=== PATIENT | female | born 1985 | race Caucasian/White ===

== ENCOUNTER 2023-04-07 00:04 | Emergency (ER) | payer OTHER, SELFPAY ==
[2023-04-07] VITALS (12 sets, daily range): BP systolic 137–143; BP diastolic 61–81; PULSE 61–85; RESP 15–29; TEMP 37.2; O2SAT 99–100; BMI 50.8
--- NOTE | 2023-04-07 00:16 | ED.GENADUL1 ---
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 tonight at rest developed substernal chest pain that radiated into the back of his neck and head. Pain associated with nausea and vomiting. Denies past history. of heart disease. pain started about one hour ago Onset (ago): hour(s) Related Data Allergies Allergy/AdvReac Type Severity Reaction Status Date / Time aripiprazole [From Abilify] Allergy Intermediate Rash Verified 04/07/23 00:07 fentanyl Allergy Intermediate Verified 04/07/23 00:07 aspirin Allergy Mild Rash Verified 04/07/23 00:07 Review of Systems ROS Status of ROS 10 or more systems reviewed and unremarkable except as noted in history and below [facility] Social History Smoking status: Current every day smoker Exam Constitutional Vital Signs, click to edit/add: Last Vital Signs Temp 99.0 F 04/07/23 00:07 Pulse 69 04/07/23 01:31 Resp 17 04/07/23 01:31 BP 137/81 04/07/23 01:31 Pulse Ox 100 04/07/23 01:20 O2 Del Method Room Air 04/07/23 00:07 Common normals: no apparent distress, oriented x3 and alert HENMT Common normals: normocephalic and head/scalp atraumatic Chest Common normals: inspection of chest normal, palpation of chest normal and inspection of breasts normal Respiratory Common normals: normal respiratory effort, no retractions, no use of accessory muscles and clear to auscultation bilaterally Cardio Common normals: regular rate, regular rhythm, S1 normal heart sound and S2 normal heart sound GI Common normals: Normal to inspection, nondistended, normoactive bowel sounds present, soft to palpation and non-tender Extremity Common normals: normal to inspection and full ROM Neuro Common normals: oriented x3, moves all extremities and no focal motor deficits Psych Appearance: grossly normal Course Vital Signs Vital signs: Vital Signs Temperature 99.0 F 04/07/23 00:07 Pulse Rate 76 04/07/23 00:07 Respiratory Rate 17 04/07/23 00:07 Blood Pressure 143/61 H 04/07/23 00:07 Pulse Oximetry 100 08/15/23 00:07 Oxygen Delivery Method Room Air 04/07/23 00:07 Temperature 99.0 F 04/07/23 00:07 Pulse Rate 69 04/07/23 01:31 Respiratory Rate 17 04/07/23 01:31 Blood Pressure 137/81 04/07/23 01:31 Pulse Oximetry 100 04/07/23 01:20 Oxygen Delivery Method Room Air 04/07/23 00:07 Medical Decision Making MDM Narrative Medical decision making narrative: patient past history of IVDA. States no longer using drugs. John developed acute onset of chest pain with radiation of pain to her back. no history of CAD or PE. Workup initiated and patient started feeling better after only a short stay in the department and requested discharged before most of the labs and diagnostic studies returned. patient advised she would have to be discharged AMA as her workup was incomplete and her presenting symptoms worrisome. She decided to leave AMA Lab Data Labs: Lab Results 04/07/23 Range/Units 00:35 WBC 12.1 H (4.0-11.0) 10^3/uL RBC 4.74 (4.20-5.40) 10^6/uL Hgb 12.2 (12.0-16.0) g/dL Hct 38.8 (36.0-48.0) % MCV 81.9 (81.0-99.0) fL MCH 25.7 L (26.7-34.0) pg MCHC 31.4 (29.9-35.2) g/dL RDW 15.8 H (11.0-15.0) % Plt Count 280 (150-450) 10^3/uL MPV 10.4 (9.5-13.5) fL Neut % (Auto) 73.8 (43.0-75.0) % Lymph % (Auto) 19.4 L (20.5-60.0) % [place] % (Auto) 5.8 (1.7-12.0) % Eos % (Auto) 0.5 L (0.9-7.0) % Baso % (Auto) 0.2 (0.2-2.0) % Neut # (Auto) 8.9 H (1.4-6.5) 10^3/uL Lymph # (Auto) 2.3 (1.2-3.8) 10^3/uL [place] # (Auto) 0.7 (0.3-0.8) 10^3/uL Eos # (Auto) 0.1 (0.0-0.7) 10^3/uL Baso # (Auto) 0.0 (0.0-0.1) 10^3/uL Abs Immat Gran (auto) 0.04 H (0.00-0.03) 10^3/uL Imm/Tot Granulo (auto) 0.3 (0.0-0.5) % Sodium 140 (136-145) mmol/L Potassium 4.0 (3.5-5.1) mmol/L Chloride 105 (98-107) mmol/L Carbon Dioxide 26.0 (21.0-32.0) mmol/L Anion Gap 13.0 BUN 16.0 (7.0-18.0) mg/dL Creatinine 0.95 (0.55-1.02) mg/dL Est GFR ( Amer) >60 (>=60) Est GFR (Non-Af Amer) >60 (>=60) BUN/Creatinine Ratio 16.8 Glucose 116 H (74-106) mg/dL Calcium 8.3 L (8.5-10.1) mg/dL Troponin I High Sens 30.7 (4.0-51.3) pg/mL Discharge Plan Discharge Chief Complaint: Headache Clinical Impression: Chest pain Patient Disposition: Left Against Medical Advice Stand Alone Forms: Portal Instructions Referrals: Physician,Non-Staff, MD [Primary Care Provider] - 1 week Discharge Date/Time: 04/07/23 01:50
--- NOTE | 2023-04-07 00:18 | ECG_ITS ---
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
[2023-04-07 00:48] LABS: Basophils Percent Auto 0.2 % (0.2-2.0); Eosinophils Absolute Auto 0.1 10^3/uL (0.0-0.7); Eosinophils Percent Auto 0.5 % (0.9-7.0); Hematocrit 38.8 % (36.0-48.0); Hemoglobin 12.2 g/dL (12.0-16.0); Immature Granulocytes Abs Auto 0.04 10^3/uL (0.00-0.03); Immature Granulocytes Pct Auto 0.3 % (0.0-0.5); Lymphocytes Absolute Auto 2.3 10^3/uL (1.2-3.8); Lymphocytes Percent Auto 19.4 % (20.5-60.0); Mean Corpuscular HGB Conc 31.4 g/dL (29.9-35.2); Mean Corpuscular Hemoglobin 25.7 pg (26.7-34.0); Mean Corpuscular Volume 81.9 fL (81.0-99.0); Mean Platelet Volume 10.4 fL (9.5-13.5); Monocytes Absolute Auto 0.7 10^3/uL (0.3-0.8); Monocytes Percent Auto 5.8 % (1.7-12.0); Neutrophils Absolute Auto 8.9 10^3/uL (1.4-6.5); Neutrophils Percent Auto 73.8 % (43.0-75.0); Platelet Count 280 10^3/uL (150-450); Red Blood Count 4.74 10^6/uL (4.20-5.40); Red Cell Distribution Width 15.8 % (11.0-15.0); White Blood Count 12.1 10^3/uL (4.0-11.0)
[2023-04-07 01:04] LABS: BUN Creatinine Ratio 16.8; Calcium 8.3 mg/dL (8.5-10.1); Chloride 105 mmol/L (98-107); Estimated GFR (African America >60 (>=60); Estimated GFR (Non-African Ame >60 (>=60); Glucose 116 mg/dL (74-106); Sodium 140 mmol/L (136-145); Troponin I High Sensitivity 30.7 pg/mL (4.0-51.3)
== END 2023-04-07 01:50 | disposition left against medical advice (07) ==
LOC: ER 01:01
PROVIDERS: Emergency Provider Internal Medicine
DX: R07.9 Chest pain, unspecified (principal); F19.11 Other psychoactive substance abuse, in remission; F17.210 Nicotine dependence, cigarettes, uncomplicated
CPT/HCPCS: 36415; 80048; 84484; 85025; 93005; 99284